=== PATIENT | female | born 1990 | race Caucasian/White ===

== ENCOUNTER 2016-07-12 08:39 | Day surgery (SDC) | payer MEDICAID ==
[~2016-07-12 08:39] MED LIST: BUPIVACAINE/EPI 0.25% 30 ML SDV ONE; EPINEPHrine 30 MG/30 ML MDV ONE; PREGABALIN 150 MG CAP PO ONE; SCOPOLAMINE HYDROBROMIDE 1.5 MG PATCH TD ONE; ceFAZolin 2 GM/DEXTROSE 100 ML IV ONE
[2016-07-12] MEDS ORDERED: ACETAMINOPHEN 500 MG TAB ONE (09:11)
[2016-07-12] MEDS ORDERED: LIDOCAINE 1% 2 ML INJ ONE (09:12)
[2016-07-12] MEDS ORDERED: LIDOCAINE 1% 5 ML SDV ID PRN (09:29)
[2016-07-12] MEDS ORDERED: LR 1,000 ML IV ONE (09:29)
[2016-07-12] MEDS ORDERED: ACETAMINOPHEN 500 MG TAB PO ONE ×2 (09:30→14:00)
[2016-07-12] MEDS ORDERED: PROPOFOL/EMULSION 500 MG/50 ML BOTTLE IV ONE ×2 (10:08→10:59)
[2016-07-12] MEDS ORDERED: fentaNYL 250 MCG/5 ML INJ ONE (10:08)
[2016-07-12] MEDS ORDERED: MIDAZOLAM 2 MG/2 ML VIAL ONE (10:13)
[2016-07-12] MEDS ORDERED: SKIN ADHESIVE (DERMABOND) 1 EACH TP ONE (12:13)
[2016-07-12] MEDS ORDERED: PROPOFOL 200 MG/20 ML VIAL ONE (12:30)
[2016-07-12] MEDS ORDERED: fentaNYL 100 MCG/2 ML INJ ONE (12:47)
[2016-07-12] MEDS ORDERED: HYDROmorphONE/DILAUDID 1 MG/ML SYR ONE (13:10)
[2016-07-12] MEDS ORDERED: HYDROmorphONE/DILAUDID 1 MG/ML SYR IVP PRN (13:23)
[2016-07-12] MEDS ORDERED: HYDROCODONE/APAP 5/325 TAB ONE (13:24)
[2016-07-12] MEDS ORDERED: fentaNYL 100 MCG/2 ML INJ IVP PRN (13:25)
[2016-07-12] MEDS ORDERED: HYDROCODONE/APAP 5/325 TAB PO PRN (13:28)
[2016-07-12] MEDS ORDERED: OXYCODONE/APAP 5/325 TAB PO PRN (13:41)
[2016-07-12] MEDS ORDERED: SCOPOLAMINE HYDROBROMIDE 1.5 MG PATCH TD ONE (14:00)
[2016-07-12] MEDS ORDERED: PREGABALIN 150 MG CAP PO ONE (14:00)
[2016-07-12] MEDS ORDERED: ceFAZolin 2 GM/DEXTROSE 100 ML IV ONE (14:00)
== END 2016-07-12 14:20 | disposition home or self-care (01) ==
LOC: FSGY 08:39
PROVIDERS: ATTEND Orthopaedic Surgery Sports Medicine
PROC: 0SBB4ZZ Excision of Left Hip Joint, Percutaneous Endoscopic Approach (ICD-10-PCS; principal; 2016-07-12 10:15)
DX: Q65.89 Other specified congenital deformities of hip (principal); M25.851 Other specified joint disorders, right hip
CPT/HCPCS: 29863; 76001; C1769; J0690; J1170; J2250; J2704; J3010